=== PATIENT | male | born 1940 | race Caucasian/White ===

== ENCOUNTER 2019-03-19 05:55 | Day surgery (SDC) | payer MEDICARE ==
[2019-03-17 08:40] VITALS: BP 143/70
[2019-03-17 08:44] LABS: BASOPHILS % (AUTO) 0.7 % (0.0-5.0); HEMATOCRIT 40.6 % (42-54); LYMPHOCYTES % (AUTO) 38.3 % (21.0-51.0); MEAN CORPUSCULAR HEMOGLOBIN 30.1 pg (27.0-33.0); MEAN CORPUSCULAR HGB CONC 33.3 g/dL (32.0-36.0); MEAN CORPUSCULAR VOLUME 90.4 fL (79-99); MONOCYTES % (AUTO) 8.6 % (3.0-13.0); NEUTROPHILS % (AUTO) 51.4 % (40.0-77.0); NUCLEATED RED BLOOD CELLS 0.1 % (0.0-0.19); PLATELET COUNT (AUTO) 155 K/uL (130-400); RED BLOOD CELL COUNT(AUTO) 4.49 MIL/uL (4.50-6.20); RED CELL DISTRIBUTION WIDTH 14.4 % (11.0-15.5); WHITE BLOOD COUNT (AUTO) 4.6 K/uL (4.8-10.8)
[2019-03-17 08:50] LABS: CREATININE 1.1 mg/dL (0.5-1.5); POTASSIUM 4.4 mmol/L (3.5-5.1)
[2019-03-17 08:56] LABS: INR 0.97 (0.85-1.15); PARTIAL THROMBOPLASTIN TIME 30.9 SEC (26.3-35.5); PROTHROMBIN TIME 10.2 SEC (9.6-11.6)
[2019-03-17 09:47] LABS: APPEARANCE,URINE Clear (CLEAR); BILIRUBIN,URINE Negative (NEGATIVE); COLOR,URINE Yellow (YELLOW); GLUCOSE, URINE (UA) Negative (NEGATIVE); KETONES,URINE Negative (NEGATIVE); LEUKOCYTE ESTERASE ,URINE Small (NEGATIVE); NITRATE,URINE Positive (NEGATIVE); OCCULT BLOOD,URINE Small (NEGATIVE); PROTEIN,URINE Negative (NEGATIVE); UROBILINOGEN,URINE 0.2 mg/dL (0.2-1.0)
[2019-03-17 10:08] LABS: BACTERIA,URINE Few /HPF (None Seen); RBC,URINE 0-1 /HPF (0-1); SQUAMOUS EPITHELIAL CELL,UR Rare /HPF (0-2)
--- NOTE | 2019-03-18 11:06 | NUR ---
REPORTED ABNORMAL LABS TO ROLANDO VELA OF DR. GUERRERO. OK TO PROCEED, ORDERS RECEIVED TO DO UA C/S ON DAY OF PROCEDURE. Addendum: 03/18/19 at 1258 by GOPAL BIGGS RN RN WRONG PT
--- NOTE | 2019-03-18 13:03 | NUR ---
REPORTED ABNORMAL LABS TO ELVIS VELA OF DR. VASQUEZ. OK TO PROCEED. ORDERED REPEAT UA IN AM OF PROCEDURE AND DO C/S ON URINE.
[~2019-03-19] VITALS: Ht 182.9 cm; Wt 85.5 kg
[2019-03-19] VITALS (21 sets, daily range): BP systolic 120–165; BP diastolic 69–93
[~2019-03-19 05:55] MED LIST: ASPI-555 PO; CHOL200074 PO; CLOP75TA32 PO; KRIL1CAP22 PO; LEVO75TA10 PO; METO-408 PO; NITR0.4T50 SL; OMEP40CA37 PO; ROSU10TA22 PO; UBID100C45 PO
[2019-03-19] MEDS ORDERED: SODIUM CHLORIDE 0.9% 1000ML 1,000 ML IV ONE (06:18)
[2019-03-19] MEDS ORDERED: MIDAZOLAM HCL 1 MG/ML 2ML VIAL ONE ×2 (07:19→08:28)
[2019-03-19] MEDS ORDERED: LIDOCAINE HCL 1% 20 ML VIAL ONE (07:19)
[2019-03-19] MEDS ORDERED: BIVALIRUDIN 250 MG/VIAL IV ONE (07:19)
[2019-03-19] MEDS ORDERED: IOHEXOL 350 MG/ML 100ML INFUS..BTL IV ONE ×2 (07:19→08:57)
[2019-03-19] MEDS ORDERED: NITROGLYCERIN 5 MG/ML 10 ML VIAL IV ONE (07:19)
[2019-03-19] MEDS ORDERED: IOHEXOL-350 50ML VIAL IV ONE (07:19)
[2019-03-19] MEDS ORDERED: FENTANYL CITRATE PF 50 MCG/1 ML 2ML VIAL ONE (07:20)
--- NOTE | 2019-03-19 07:28 | NUR ---
TO PIPEFITTER PT TAKEN TO PIPEFITTER BY KARLA DONALDSON VIA BED. PT STABLE.
[2019-03-19 08:02] LABS: APPEARANCE,URINE CLOUDY (CLEAR); BILIRUBIN,URINE NEGATIVE (NEGATIVE); COLOR,URINE YELLOW (YELLOW); GLUCOSE, URINE (UA) NEGATIVE (NEGATIVE); KETONES,URINE NEGATIVE (NEGATIVE); LEUKOCYTE ESTERASE ,URINE MODERATE (NEGATIVE); NITRATE,URINE POSITIVE (NEGATIVE); OCCULT BLOOD,URINE MODERATE (NEGATIVE); PH,URINE 7.5 (5.0-8.0); PROTEIN,URINE NEGATIVE (NEGATIVE); UROBILINOGEN,URINE 0.2 mg/dL (0.2-1.0)
[2019-03-19 08:33] LABS: RBC,URINE 0-1 /HPF (0-1)
[2019-03-19 08:34] LABS: BACTERIA,URINE Many /HPF (None Seen); SQUAMOUS EPITHELIAL CELL,UR Rare /HPF (0-2)
[2019-03-19] MEDS ORDERED: IOHEXOL-350 75 ML VIAL IV ONE (08:57)
[2019-03-19] MEDS ORDERED: TICAGRELOR 90 MG TABLET ONE (09:08)
[2019-03-19] MEDS ORDERED: SODIUM CHLORIDE 0.9% 1000ML 1,000 ML IV SCH (09:19)
[2019-03-19] MEDS ORDERED: DEXTROSE 50%-WATER 50 ML DISP.SYRIN IV PRN (09:30)
[2019-03-19] MEDS ORDERED: HYDRALAZINE HCL 20 MG/ML VIAL IV PRN (09:30)
[2019-03-19] MEDS ORDERED: METOPROLOL TARTRATE 1 MG/ML 5ML VIAL IV PRN (09:30)
[2019-03-19] MEDS ORDERED: NITROGLYCERIN 0.4 MG SL TAB SL PRN (09:30)
[2019-03-19] MEDS ORDERED: GLUCAGON 1MG KIT 1 MG ML IM PRN (09:30)
--- NOTE | 2019-03-19 09:35 | NUR ---
DISCHARGE ORDER PER DR. VASQUEZ, PT MAY BE DISCHARGED AT 1730 TODAY IF STABLE.
[2019-03-19] MEDS ORDERED: ATROPINE SULFATE 0.1 MG/ML 10 ML SYG IVP ONE (10:00)
--- NOTE | 2019-03-19 11:21 | NUR ---
SHEATH DISCONTINUED 7FR SHEATH TO RIGHT GROIN DISCONTINUED, D-STAT UTILIZED, MANUAL PRESSURE APPLIED X 25 MINS, THEN ADDITIONAL 2 MINS. DRESSING APPLIED, DRY AND INTACT. PT TOLERATED WELL, AWAKE ALERT, TALKING. CATH SITE SOFT, NO OOZING NO HEMATOMA NOTED. TJ HOWARD RN IN ROOM WITH ME.
--- NOTE | 2019-03-19 13:55 | NUR ---
BACK PAIN PT COMPLAINING BACK PAIN SCALE OF 3-4, ASKING IF PT CAN TAKE TYLENOL 500MG, HE IS TAKING AT HOME. CALLED MIRIAN CAMPA. PER Richard JONES, MAY GIVE TYLENOL 500 MG 1-2 TABS PO Q 6HRS PRN PAIN.
[2019-03-19] MEDS ORDERED: ACETAMINOPHEN EXTRA STRENGTH 500 MG TABLET ONE (13:57)
[2019-03-19] MEDS ORDERED: ACETAMINOPHEN EXTRA STRENGTH 500 MG TABLET PO PRN ×2 (14:30)
--- NOTE | 2019-03-19 15:49 | NUR ---
REPORT REPORT GIVEN TO GODFREY GRAHAM RN. PT SEMI SITTING ON BED. STABLE. NO COMPLAINTS MADE. STATED BACK PAIN RELIEVED. CATH SITE REMAINED SOFT, NO OOZING NO HEMATOMA NOTED.
--- NOTE | 2019-03-19 16:37 | NUR ---
CLARIFICATION PAGED MIRIAN CAMPA, CALLED BACK. CLARIFIED WITH REGARDS TO NEW RX BRILINTA 90 MG PO BID AND WHEN TO START TAKING IT. TOLD HIM THAT PT WAS GIVEN BRILINTA 180 MG PO GIVEN THIS AM IN [place] POST PROCEDURE, ALSO TOOK HOME MED PLAVIX THIS AM. (PLAVIX DISCONTINUED BY DR. VASQUEZ). PER MIRIAN MCGEE PT TO START TAKING BRILINTA TOMORROW.
[2019-03-19] MEDS ORDERED: TICAGRELOR 90 MG TABLET PO SCH (21:00)
== END 2019-03-19 17:49 | disposition home or self-care (01) ==
LOC: DAH 05:55 → UNDOADMOB 05:56 → DAH 05:56 → DAHIP 05:56 → UNDODISOB 17:49 → DAH 17:49
PROVIDERS: ATTEND Internal Medicine Cardiovascular Disease
DX: I25.118 Atherosclerotic heart disease of native coronary artery with other forms of angina pectoris (principal); E78.5 Hyperlipidemia, unspecified; I25.2 Old myocardial infarction; K21.9 Gastro-esophageal reflux disease without esophagitis; I11.9 Hypertensive heart disease without heart failure; E03.9 Hypothyroidism, unspecified; E78.49 Other hyperlipidemia; Z79.01 Long term (current) use of anticoagulants; Z79.899 Other long term (current) drug therapy; Z88.1 Allergy status to other antibiotic agents; Z91.040 Latex allergy status; Z88.8 Allergy status to other drugs, medicaments and biological substances; Z87.891 Personal history of nicotine dependence; Z93.2 Ileostomy status; Z85.51 Personal history of malignant neoplasm of bladder; Z98.890 Other specified postprocedural states; Z83.3 Family history of diabetes mellitus; Z82.49 Family history of ischemic heart disease and other diseases of the circulatory system; Z82.5 Family history of asthma and other chronic lower respiratory diseases
CPT/HCPCS: 36415; 71045; 80048; 81001 ×2; 85025; 85610; 85730; 87077 ×2; 87088; 87186 ×2; 92920; 93005; 93458; A4606; C1725; C1769 ×2; C1887; C1894 ×4; J0583; J1644; J2250 ×2; J3010; J3490; J7030; Q9965 ×2; Q9967 ×2; 99156; 99157; G0378; J0461

== ENCOUNTER 2021-11-10 08:55 | Day surgery (SDC) | payer MEDICARE ==
[2021-11-08 10:57] LABS: APPEARANCE,URINE Clear (CLEAR); BILIRUBIN,URINE Negative (NEGATIVE); COLOR,URINE Yellow (YELLOW); GLUCOSE, URINE (UA) Negative (NEGATIVE); KETONES,URINE Negative (NEGATIVE); LEUKOCYTE ESTERASE ,URINE Trace (NEGATIVE); NITRATE,URINE Positive (NEGATIVE); OCCULT BLOOD,URINE Moderate (NEGATIVE); PROTEIN,URINE Negative (NEGATIVE); UROBILINOGEN,URINE 0.2 mg/dL (0.2-1.0)
[2021-11-08 10:57] LABS: BASOPHILS % (AUTO) 0.8 % (0.0-5.0); EOSINOPHILS % (AUTO) 0.6 % (0.0-8.0); HEMATOCRIT 39.5 % (42-54); LYMPHOCYTES % (AUTO) 44.7 % (21.0-51.0); MEAN CORPUSCULAR HEMOGLOBIN 29.4 pg (27.0-33.0); MEAN CORPUSCULAR HGB CONC 33.2 g/dL (32.0-36.0); MEAN CORPUSCULAR VOLUME 88.6 fL (79-99); MONOCYTES % (AUTO) 21.3 % (3.0-13.0); NEUTROPHILS % (AUTO) 28.7 % (40.0-77.0); PLATELET COUNT (AUTO) 111 K/uL (130-400); RED BLOOD CELL COUNT(AUTO) 4.46 MIL/uL (4.50-6.20); RED CELL DISTRIBUTION WIDTH 14.6 % (11.0-15.5); WHITE BLOOD COUNT (AUTO) 3.6 K/uL (4.8-10.8)
[2021-11-08 11:04] LABS: CREATININE 1.1 mg/dL (0.5-1.5); POTASSIUM 4.5 mmol/L (3.5-5.1)
[2021-11-08 11:06] LABS: INR 1.08 (0.85-1.15); PROTHROMBIN TIME 11.7 SEC (9.6-11.6)
[2021-11-08 11:07] LABS: PARTIAL THROMBOPLASTIN TIME 29.1 SEC (26.3-35.5)
[2021-11-08 11:12] LABS: AMORPHOUS SEDIMENT,UR Few /LPF (None Seen); BACTERIA,URINE Few /HPF (None Seen); RBC,URINE 0-1 /HPF (0-1); SQUAMOUS EPITHELIAL CELL,UR Rare /HPF (0-2); WBC,URINE 0-1 /HPF (0-1)
[2021-11-09 14:13] VITALS: BP 143/74
[~2021-11-10] VITALS: Ht 185.4 cm; Wt 88.6 kg
[2021-11-10] VITALS (8 sets, daily range): BP systolic 151–169; BP diastolic 79–90
[~2021-11-10 08:55] MED LIST changes: +0.9%NACL 1000ML 1,000 ML IV SCH; -ASPI-555 PO; +ASPI-556 PO; +CEFTRIAXONE 1G VIAL IVP ONE; +CLEAR LAX PO; +CYAN100T45 PO; +FOLI1 PO; -KRIL1CAP22 PO; +MAGN500C15 PO; +OMEG-148 PO; -OMEP40CA37 PO; +PANT40TA54 PO; -ROSU10TA22 PO; +ROSU5TAB PO; -UBID100C45 PO; +UBID200C18 PO
[2021-11-10] MEDS ORDERED: CEFTRIAXONE 1G VIAL ONE (09:36)
[2021-11-10] MEDS ORDERED: BIVALIRUDIN 250 MG/VIAL IV ONE (10:10)
[2021-11-10] MEDS ORDERED: NITROGLYCERIN 50MG VIAL ONE (10:10)
[2021-11-10] MEDS ORDERED: IOHEXOL-350 50ML VIAL IV ONE (10:10)
[2021-11-10] MEDS ORDERED: LIDOCAINE HCL 400MG/20ML VIAL ONE (10:11)
[2021-11-10] MEDS ORDERED: IOHEXOL 350 MG/ML 100ML INFUS..BTL IV ONE (10:11)
[2021-11-10] MEDS ORDERED: MIDAZOLAM HCL 1 MG/ML 2ML VIAL ONE (15:46)
[2021-11-10] MEDS ORDERED: FENTANYL CITRATE PF 50 MCG/1 ML 2ML VIAL ONE (15:47)
[2021-11-10] MEDS ORDERED: METOPROLOL TARTRATE 1 MG/ML 5ML VIAL IV PRN (17:00)
[2021-11-10] MEDS ORDERED: GLUCAGON 1MG KIT 1 MG ML IM PRN (17:00)
[2021-11-10] MEDS ORDERED: DEXTROSE 50%-WATER 50 ML DISP.SYRIN IV PRN (17:00)
[2021-11-10] MEDS ORDERED: NITROGLYCERIN 0.4 MG SL TAB SL PRN (17:00)
[2021-11-10] MEDS ORDERED: 0.9%NACL 1000ML 1,000 ML IV SCH (17:00)
[2021-11-10] MEDS ORDERED: RANOLAZINE 500 MG TAB.SR.12H PO SCH (18:00)
== END 2021-11-10 20:02 | disposition home or self-care (01) ==
LOC: DAH 08:55
PROVIDERS: ATTEND Internal Medicine Cardiovascular Disease
DX: I25.110 Atherosclerotic heart disease of native coronary artery with unstable angina pectoris (principal); T82.855A Stenosis of coronary artery stent, initial encounter; I50.32 Chronic diastolic (congestive) heart failure; I45.10 Unspecified right bundle-branch block; E66.9 Obesity, unspecified; E78.5 Hyperlipidemia, unspecified; I25.2 Old myocardial infarction; Z98.890 Other specified postprocedural states; Z79.01 Long term (current) use of anticoagulants; Z79.899 Other long term (current) drug therapy; Z68.25 Body mass index [BMI] 25.0-25.9, adult; Z95.5 Presence of coronary angioplasty implant and graft; Z91.040 Latex allergy status; Z88.8 Allergy status to other drugs, medicaments and biological substances; Y83.8 Other surgical procedures as the cause of abnormal reaction of the patient, or of later complication, without mention of misadventure at the time of the procedure
CPT/HCPCS: 36415; 71045; 80048; 81001; 85025; 85610; 85730; 87077 ×2; 87088; 87186 ×2; 93005; 93458; A4215; A4216; A4221; A4222; A4223 ×3; A4606; A4663; C1894 ×2; J0696; J1644; J2250; J3010; J3490; J7030; Q9967 ×2; 99156; 99157; J0583

== ENCOUNTER → 2021-12-06 | Outpatient (CLI) | payer MEDICARE ==
[~2021-12-06] MED LIST changes: -0.9%NACL 1000ML 1,000 ML IV SCH; +AMIO200T44 PO; +ATOR40TA71 PO; -CEFTRIAXONE 1G VIAL IVP ONE; +FURO20TA6 PO; +LOSA25TA2 PO; -MAGN500C15 PO; +MAGN500C4 PO; -METO-408 PO; +METO25 PO; -NITR0.4T50 SL; -ROSU5TAB PO
== END | disposition home or self-care (01) ==
LOC: RAH 11:40
PROVIDERS: ATTEND Thoracic Surgery (Cardiothoracic Vascular Surgery)
DX: R06.02 Shortness of breath (principal); Z95.1 Presence of aortocoronary bypass graft
CPT/HCPCS: 71045